=== PATIENT | female | born 2000 | race Two or more races ===

== ENCOUNTER 2021-04-12 15:52 | Observation (INO) | payer MEDICAID | END 2021-04-12 17:30 | disposition home or self-care (01) | LOC: 3 SO LND 15:52 | PROVIDERS: ADMIT Obstetrics & Gynecology; ATTEND Obstetrics & Gynecology | DX: O36.8130 Decreased fetal movements, third trimester, not applicable or unspecified (principal); Z3A.37 37 weeks gestation of pregnancy | CPT/HCPCS: 59025; G0378; G0379 ==